=== PATIENT | female | born 1980 | race Two or more races ===

== ENCOUNTER 2017-09-10 23:51 | Emergency (ER) | payer OTHER ==
[2017-09-11 00:08] VITALS: TEMP 98.1
--- NOTE | 2017-09-11 00:10 | EDPHY ---
H & P Stated Complaint: anxiety shakey Source: Patient, Family ( and some), Body Artist (Ugandan) Exam Limitations: Language barrier - Personal History LMP (Females 10-55): 22-28 Days Ago Current Tetanus/Diphtheria Vaccine: Yes Current Tetanus Diphtheria and Acellular Pertussis (TDAP): Yes - Medical/Surgical History Hx Asthma: No Hx Chronic Respiratory Disease: No Hx Diabetes: No Hx Cardiac Disease: No Hx Renal Disease: No Hx Cirrhosis: No Hx Alcoholism: No Hx HIV/AIDS: No Hx Splenectomy or Spleen Trauma: No - Social History Smoking Status: Never smoked Time Seen by Provider: 09/11/17 00:10 HPI/ROS: HPI: This is a 37-year-old female who presents with Chief Complaint: anxiety shakey Location: Body Quality: Shaking Duration: Prior to arrival Signs and Symptoms: no fever, no chills, no nausea, no vomiting, no headache, no chest pain, no SOB, no abdominal pain Timing: sudden, slightly improved Severity:moderate Context: Patient presents with complaints of her entire body shaking prior to arrival. She wanted to relax this evening so she went to take a bath and to drink tea. After her bath she went to lay in bed and was drinking tea for dryness of her mouth. Patient is generally healthy and has no prior medical problems. Last menstrual period was approximately 3 weeks ago. Patient denies that she was upset or anxious prior to this event. Upon arrival patient looks pale and is breathing quickly and shallow. denies chest pain, shortness of breath, palpitations, dry eyes. She has no prior cardiac/lung history. Denies suicidal ideation, homicidal ideation. Denies recreational drug use. Modifying Factors: none Comment: ROS: see HPI Constitutional: No fever, no chills, no weight loss Eyes: No blurred vision Respiratory: No shortness of breath, no cough Cardiovascular: No chest pain Gastrointestinal: No nausea, no vomiting, no diarrhea Genitourinary: No dysuria Extremities: No myalgias Neurologic: No weakness, no numbness Skin: No rashes Hematologic: No bruising, no bleeding MEDICAL/SURGICAL/SOCIAL HISTORY: Medical history: Generally healthy. Does not take any regular medications. Surgical history: Denies Social history: with children. CONSTITUTIONAL: Extremely anxious awake and alert, no obvious distress HEENT: Atraumatic and normocephalic, PERRL, EOMI. Tympanic membranes clear. Oropharynx clear, no exudate and moist pink mucosa. Airway patent. No lymphadenopathy. No meningismus. Cardiovascular: Normal S1/S2, regular rate, regular rhythm, without murmur rub or gallop. PULMONARY/CHEST: Symmetrical and nontender. Clear to auscultation bilaterally. Good air movement. No accessory muscle usage. ABDOMEN: Soft, nondistended, nontender, no rebound, no guarding, no peritoneal signs, no masses or organomegaly. No CVAT. EXTREMITIES: 2/2 pulses, strength 5/5, no deformities, no clubbing, no cyanosis or edema. NEUROLOGICAL: no focal neuro deficits. GCS 15. SKIN: Warm and dry, no erythema. no rash. Good capillary refill. (Isabella Barrios) Constitutional: Initial Vital Signs Temperature (C) 36.7 C 09/11/17 00:03 Heart Rate 99 09/11/17 00:03 Respiratory Rate 18 09/11/17 00:03 Blood Pressure 165/94 H 09/11/17 00:03 O2 Sat (%) 97 09/11/17 00:03 O2 Delivery Mode Room Air Allergies/Adverse Reactions: No Known Allergies Allergy (Unverified 07/02/10 03:15) Home Medications: Medication Instructions Recorded NK [No Known Home Meds] 09/11/17 Medical Decision Making - Diagnostics EKG Interpretation: 12 lead EKG: Indication: Anxiety Rhythm: Normal sinus rhythm, rate 94 bpm [place]: Normal MI: Normal QRS: Normal ST segments: nonspecific changes T waves: normal INTERPRETATION: no acute ischemic changes The 12 lead EKG was interpreted by myself and with attending. (Isabella Barrios) ED Course/Re-evaluation: Labs, EKG and IV medications ordered Vital signs reviewed upon arrival and elevated BP noted but no tachycardia/ hypoxia Given IV Ativan 1 mg upon arrival Potassium 3.3, magnesium level ordered, p.o. potassium supplementation given Serum glucose 128; hemoglobin A1c ordered D-dimer high normal; CTA chest ordered Urinalysis unremarkable Reassessed patient and she is sleeping soundly. 0115: End of shift. Signed over to Dr. Taylor pending results of CTA chest. (Isabella Barrios) [id number]: Patient's CT angiogram negative for pulmonary embolism called to me by Dr. Griffith. (Ermias Taylor) Differential Diagnosis: Differential diagnosis includes but is not limited to arrhythmia, anxiety attack , acute coronary syndrome, hyperthyroidism. (Isabella Barrios) - Data Points Laboratory Results: Laboratory Results 09/11/17 00:20 09/11/17 00:20 09/11/17 09/11/17 09/11/17 00:45 00:20 00:20 WBC RBC Hgb Hct MCV MCH MCHC RDW Plt Count MPV Neut % (Auto) Lymph % (Auto) [place] % (Auto) Eos % (Auto) Baso % (Auto) Nucleat RBC Rel Count Absolute Neuts (auto) Absolute Lymphs (auto) Absolute Monos (auto) Absolute Eos (auto) Absolute Basos (auto) Absolute Nucleated RBC Immature Gran % Immature Gran # D-Dimer Sodium Potassium Chloride Carbon Dioxide Anion Gap BUN Creatinine Estimated GFR Glucose Hemoglobin A1c Pending Estim Average Glucose Pending Calcium Magnesium Troponin I TSH Beta HCG, Qual NEGATIVE Urine Color COLORLESS Urine Appearance CLEAR Urine pH 6.0 (5.0-7.5) Ur Specific [place] 1.002 (1.002-1.030) Urine Protein NEGATIVE (NEGATIVE) Urine Ketones NEGATIVE (NEGATIVE) Urine Blood NEGATIVE (NEGATIVE) Urine Nitrate NEGATIVE (NEGATIVE) Urine Bilirubin NEGATIVE (NEGATIVE) Urine Urobilinogen NEGATIVE EU EU (0.2-1.0) Ur Leukocyte Esterase NEGATIVE (NEGATIVE) Urine Glucose NEGATIVE (NEGATIVE) 09/11/17 09/11/17 09/11/17 00:20 00:20 00:20 WBC 8.88 10^3/uL 10^3/uL (3.80-9.50) RBC 4.36 10^6/uL 10^6/uL (4.18-5.33) Hgb 14.4 g/dL g/dL (12.6-16.3) Hct 40.4 % % (38.0-47.0) MCV 92.7 fL fL (81.5-99.8) MCH 33.0 pg pg (27.9-34.1) MCHC 35.6 g/dL g/dL (32.4-36.7) RDW 12.7 % % (11.5-15.2) Plt Count 163 10^3/uL 10^3/uL (150-400) MPV 11.1 fL fL (8.7-11.7) Neut % (Auto) 59.5 % % (39.3-74.2) Lymph % (Auto) 28.3 % % (15.0-45.0) [place] % (Auto) 9.0 % % (4.5-13.0) Eos % (Auto) 2.1 % % (0.6-7.6) Baso % (Auto) 0.8 % % (0.3-1.7) Nucleat RBC Rel Count 0.0 % % (0.0-0.2) Absolute Neuts (auto) 5.28 10^3/uL 10^3/uL (1.70-6.50) Absolute Lymphs (auto) 2.51 10^3/uL 10^3/uL (1.00-3.00) Absolute Monos (auto) 0.80 10^3/uL 10^3/uL (0.30-0.80) Absolute Eos (auto) 0.19 10^3/uL 10^3/uL (0.03-0.40) Absolute Basos (auto) 0.07 10^3/uL 10^3/uL (0.02-0.10) Absolute Nucleated RBC 0.00 10^3/uL 10^3/uL (0-0.01) Immature Gran % 0.3 % % (0.0-1.1) Immature Gran # 0.03 10^3/uL 10^3/uL (0.00-0.10) D-Dimer 0.59 ug/mLFEU H ug/mLFEU (0.00-0.50) Sodium 138 mEq/L mEq/L (134-144) Potassium 3.3 mEq/L L mEq/L (3.5-5.2) Chloride 105 mEq/L mEq/L (97-110) Carbon Dioxide 22 mEq/l mEq/l (22-31) Anion Gap 11 mEq/L mEq/L (8-16) BUN 24 mg/dL H mg/dL (7-23) Creatinine 0.7 mg/dL mg/dL (0.6-1.0) Estimated GFR > 60 Glucose 128 mg/dL H mg/dL (70-100) Hemoglobin A1c Estim Average Glucose Calcium 9.0 mg/dL mg/dL (8.5-10.4) Magnesium 1.9 mg/dL mg/dL (1.6-2.3) Troponin I < 0.012 ng/mL ng/mL (0.000-0.034) TSH 5.620 uIU/mL H uIU/mL (0.465-4.680) Beta HCG, Qual Urine Color Urine Appearance Urine pH Ur Specific [place] Urine Protein Urine Ketones Urine Blood Urine Nitrate Urine Bilirubin Urine Urobilinogen Ur Leukocyte Esterase Urine Glucose Medications Given: Discontinued Medications Lorazepam (Ativan Injection) 1 mg IVP EDNOW ONE Stop: 09/11/17 00:16 Last Admin: 09/11/17 00:21 Dose: 1 mg Potassium Chloride (Potassium Chloride Oral Liquid) 20 meq PO EDNOW ONE Stop: 09/11/17 01:10 Last Admin: 09/11/17 01:16 Dose: 20 meq Departure - Departure Disposition: Home, Routine, Self-Care Clinical Impression: Hypokalemia, Episode of shaking, Mouth dryness Condition: Good Instructions: Potassium Content of Foods List (ED), Hypokalemia (ED) Additional Instructions: Please follow up with [facility] in 3-5 days to have a repeat potassium level drawn. Eat potassium rich foods. Referrals: GUERO HERNANDEZ [Other] - As per Instructions
[2017-09-11] MEDS ORDERED: LORazepam 2 MG/ML INJ ONE (00:13)
[2017-09-11] MEDS ORDERED: LORazepam 2 MG/ML INJ IVP ONE (00:15)
--- NOTE | 2017-09-11 00:20 | CPEKG ---
Heart Rate: 94 RR Interval: 638 P-R Interval: 192 QRSD Interval: 114 QT Interval: 360 QTC Interval: 451 P [place]: 47 QRS [place]: 85 T Wave [place]: 9 EKG Severity - ABNORMAL ECG - EKG Impression: SINUS RHYTHM EKG Impression: INCOMPLETE RIGHT BUNDLE BRANCH BLOCK Electronically Signed By: Dwayne Villaseñor 12-Sep-2017 13:56:53
[2017-09-11 00:48] LABS: ANION GAP 11 mEq/L (8-16); CARBON DIOXIDE 22 mEq/l (22-31); CHLORIDE 105 mEq/L (97-110); CREATININE 0.7 mg/dL (0.6-1.0); GLOMERULAR FILTRATION RATE > 60; GLUCOSE 128 mg/dL (70-100); POTASSIUM 3.3 mEq/L (3.5-5.2); SODIUM 138 mEq/L (134-144)
[2017-09-11 00:54] LABS: COLOR COLORLESS; LEUKOCYTE ESTERASE,URINE NEGATIVE (NEGATIVE); NITRITE,URINE NEGATIVE (NEGATIVE)
[2017-09-11 00:56] LABS: % IMMATURE GRANULYOCYTES 0.3 % (0.0-1.1); ABSOLUTE IMMATURE GRANULOCYTES 0.03 10^3/uL (0.00-0.10); ADD DIFF? NO; ADD MORPH? NO; ADD SCAN? NO; ATYPICAL LYMPHOCYTE FLAG 0 (0-99); FRAGMENT RBC FLAG 0 (0-99); HEMATOCRIT 40.4 % (38.0-47.0); HEMOGLOBIN 14.4 g/dL (12.6-16.3); LEFT SHIFT FLG 0 (0-99); LIPEMIA HEMOLYSIS FLAG 90 (0-99); MEAN CELL HEMOGLOBIN CONCENTR. 35.6 g/dL (32.4-36.7); MEAN CELL VOLUME 92.7 fL (81.5-99.8); MEAN PLATELET VOLUME 11.1 fL (8.7-11.7); PLATELET CLUMPS FLAG 0 (0-99); PLATELET COUNT 163 10^3/uL (150-400); RED BLOOD CELL COUNT 4.36 10^6/uL (4.18-5.33); RED CELL DISTRIBUTION WIDTH 12.7 % (11.5-15.2)
[2017-09-11 01:01] LABS: TROPONIN I < 0.012 ng/mL (0.000-0.034)
[2017-09-11] MEDS ORDERED: POTASSIUM CL 20 MEQ/15 ML UDCUP PO ONE (01:09)
[2017-09-11] MEDS ORDERED: IOPAMIDOL (ISOVUE 370) 100 ML BTL IV ONE (01:18)
[2017-09-11 01:23] LABS: MAGNESIUM 1.9 mg/dL (1.6-2.3)
[2017-09-11 02:07] VITALS: BP 109/72; PULSE 80; RESP 14; O2SAT 98
[2017-09-13 01:53] LABS: HEMOGLOBIN A1C 5.6 % (4.0-6.0)
== END 2017-09-11 02:04 | disposition home or self-care (01) ==
DX: R25.1 Tremor, unspecified (principal); R68.2 Dry mouth, unspecified; E87.6 Hypokalemia
CPT/HCPCS: 96374; J2060; Q9967